=== PATIENT | male | born 1965 | race Native Hawaiian/Other Pacific Islander ===

== ENCOUNTER 2019-05-12 08:23 | Emergency (ER) | payer OTHER ==
[~2019-05-12] VITALS: Ht 177.8 cm; Wt 96.2 kg
[2019-05-12] MEDS ORDERED: LISI5TAB10 PO (08:47)
[2019-05-12] MEDS ORDERED: METF500T PO (08:47)
[2019-05-12 09:07] LABS: PLATELET COUNT 166 K/uL (142-355)
[2019-05-12 09:15] LABS: POTASSIUM 4.5 mmol/L (3.6-5.2)
[2019-05-12 11:25] VITALS: BP 156/98; TEMP 97.8
== END 2019-05-12 11:25 | disposition home or self-care (01) ==
LOC: ED 08:23
PROVIDERS: Emergency Medicine
DX: R42 Dizziness and giddiness (principal); I10 Essential (primary) hypertension
CPT/HCPCS: 80053; 81000; 85027; 93005; 99283